=== PATIENT | female | born 1975 | race Caucasian/White ===

== ENCOUNTER → 2018-01-21 | Outpatient (CLI) | payer OTHER ==
[~2018-01-21] MED LIST: ACYCLOVIR; AMBEREN; IRON; TRAMADOL 50 MG50 MG; VICODIN 5-5001 EACH PO
== END ==
LOC: M.RAD 16:24
DX: M25.531 Pain in right wrist (principal)

== ENCOUNTER 2018-12-31 14:49 | Emergency (ER) | payer OTHER ==
[~2018-12-31] VITALS: Ht 154.9 cm; Wt 59.0 kg
[2018-12-31] MEDS ORDERED: UNICOMPLEX M TA1 TA1 PO (15:09)
[2018-12-31 15:28] LABS: URINE BILIRUBIN NEGATIVE (Negative); URINE BLOOD NEGATIVE (Negative); URINE CLARITY CLEAR; URINE COLOR YELLOW; URINE GLUCOSE-RANDOM NEGATIVE (Negative); URINE KETONES 1+ (Negative); URINE LEUKOCYTES-REFLEX NEGATIVE (Negative); URINE NITRITE-REFLEX NEGATIVE (Negative); URINE PROTEIN 1+ (Negative); URINE SPECIFIC GRAVITY >= 1.030 (1.005-1.030); URINE UROBILINOGEN 0.2 E.U./dl (0.2-1.0)
[2018-12-31 15:30] LABS: HEMATOCRIT 44.6 % (37.0-47.0); HEMOGLOBIN 15.3 gm/dL (12.0-15.0); MCH 32.3 pg (26.0-34.0); MCHC 34.4 g/dL (28.0-37.0); MCV 94.1 fL (80.0-100.0); MPV 9.3 fl. (7.2-11.1); NUCLEATED RBCS 0 /100WBC; PLATELET COUNT* 167 thou/uL (150-400); RBC 4.74 mil/uL (4.20-5.00); RDW-CV 11.8 % (10.5-14.5); WBC 13.8 thou/uL (4.0-11.0)
[2018-12-31 15:39] LABS: ALBUMIN 4.2 g/dL (3.4-5.0); CALCIUM 9.4 mg/dL (8.5-10.1); CREATININE 0.8 mg/dL (0.6-1.3); POTASSIUM 4.3 mmol/L (3.5-5.1); TOTAL BILIRUBIN 0.7 mg/dL (<0.1-1.0); TOTAL PROTEIN 8.1 g/dL (6.4-8.2)
[2018-12-31 16:11] LABS: ABSOLUTE LYMPHOCYTES 0.1 thou/uL (0.8-5.3); ABSOLUTE NEUTROPHILS 13.7 thou/uL (1.6-8.1)
[2018-12-31 16:12] LABS: PLATELET ESTIMATE ADEQUATE
[2018-12-31] MEDS ORDERED: BENTYL 10 MG CA10 M1 PO (16:16)
[2018-12-31] MEDS ORDERED: ZOFRAN ODT4 MG PO (16:16)
[2018-12-31 16:26] VITALS: BP 100/59
== END 2018-12-31 16:28 | disposition home or self-care (01) ==
LOC: M.ERS 14:49
PROVIDERS: Nurse Practitioner Family
DX: A08.4 Viral intestinal infection, unspecified (principal); D50.9 Iron deficiency anemia, unspecified; Z88.8 Allergy status to other drugs, medicaments and biological substances

== ENCOUNTER → 2019-07-07 | Outpatient (CLI) | payer OTHER ==
[~2019-07-07] MED LIST changes: +BENTYL 10 MG CA10 M1 PO; +UNICOMPLEX M TA1 TA1 PO; +ZOFRAN ODT4 MG PO
== END ==
LOC: M.RAD 10:11
DX: M54.2 Cervicalgia (principal)